=== PATIENT | male | born 1955 | race Caucasian/White ===

== ENCOUNTER 2020-04-30 08:37 | Emergency (ER) | payer MEDICARE, MEDICAID ==
[~2020-04-30] VITALS: Ht 167.6 cm; Wt 97.7 kg
[~2020-04-30 08:37] MED LIST: ATEN25TA PO; DUTA0.5C40 PO; GLIP10TA11 PO; HUM7525 SQ; INSU100I12 SQ; INSU100V13 SQ; LORA10TA7 PO; LOSA100T57 PO; METF-436 PO; METF-438 PO; OMEP-84 PO; SITA100T15 PO; TADA5TAB2 PO
[2020-04-30 08:40] VITALS: BP 155/45
[2020-04-30] MEDS ORDERED: BACI1PAC7 TP (09:12)
== END 2020-04-30 09:45 | disposition home or self-care (01) ==
LOC: ER 08:37
DX: S71.102A Unspecified open wound, left thigh, initial encounter (principal); G43.909 Migraine, unspecified, not intractable, without status migrainosus; I10 Essential (primary) hypertension; J44.9 Chronic obstructive pulmonary disease, unspecified; K21.9 Gastro-esophageal reflux disease without esophagitis; F12.90 Cannabis use, unspecified, uncomplicated; Z90.49 Acquired absence of other specified parts of digestive tract; Z90.89 Acquired absence of other organs; Z98.890 Other specified postprocedural states; Z56.0 Unemployment, unspecified; Z86.711 Personal history of pulmonary embolism; Z88.2 Allergy status to sulfonamides; Z88.8 Allergy status to other drugs, medicaments and biological substances; Z88.5 Allergy status to narcotic agent; Z79.4 Long term (current) use of insulin; Z79.899 Other long term (current) drug therapy; X58.XXXA Exposure to other specified factors, initial encounter; Y93.89 Activity, other specified; Y92.89 Other specified places as the place of occurrence of the external cause; Y99.8 Other external cause status
CPT/HCPCS: 99282

== ENCOUNTER 2020-06-08 07:59 | Emergency (ER) | payer OTHER, MEDICARE, MEDICAID ==
[~2020-06-08] VITALS: Ht 167.6 cm; Wt 97.3 kg
[2020-06-08 09:16] LABS: BASOPHILS # (AUTO) 0.1 X10'3 (0-0.2); BASOPHILS % (AUTO) 0.5 % (0-1); EOSINOPHILS # (AUTO) 0.1 X10'3 (0-0.9); EOSINOPHILS % (AUTO) 0.8 % (0-6); HEMATOCRIT 47.8 % (42.0-52.0); LYMPHOCYTES % (AUTO) 8.4 % (21-51); MEAN CORPUSCULAR HEMOGLOBIN 23.4 PG (27.0-31.0); MEAN CORPUSCULAR HGB CONC 31.4 g/dL (33.0-36.5); MEAN CORPUSCULAR VOLUME 74.3 FL (78-98); MEAN PLATELET VOLUME 8.8 FL (7.4-10.4); MONOCYTES # (AUTO) 1.2 X10'3 (0-0.9); MONOCYTES % (AUTO) 10.1 % (2-12); NEUTROPHILS # (AUTO) 9.8 X10'3 (1.8-7.7); NEUTROPHILS % (AUTO) 80.2 % (42-75); PLATELET COUNT 237 X10'3 (140-440); RED BLOOD COUNT 6.44 X10'6 (4.70-6.10); WHITE BLOOD COUNT 12.2 X10'3 (4.5-11.0)
--- NOTE | 2020-06-08 09:20 | NUR ---
Sinus bradycardia, HR low 39, asymptomatic. Catie MACKEY aware. Patient on telemetry, will continue to monitor.
[2020-06-08 09:25] LABS: ALANINE AMINOTRANSFERASE 9 U/L (12-78); ALBUMIN 3.8 G/DL (3.4-5.0); ALBUMIN/GLOBULIN RATIO 0.9 (1.1-1.5); ALKALINE PHOSPHATASE 82 IU/L (46-116); ANION GAP 15 (8-16); ASPARTATE AMINO TRANSFERASE 14 U/L (10-37); BILIRUBIN,TOTAL 0.8 MG/DL (0.1-1.0); BLOOD UREA NITROGEN 20 MG/DL (7-18); BUN/CREATININE RATIO 16.3 (5.4-32.0); CALCIUM 9.3 MG/DL (8.5-10.1); CHLORIDE 101 MMOL/L (99-107); CREATININE 1.23 MG/DL (0.60-1.10); GLUCOSE 150 MG/DL (70-104); POTASSIUM 4.3 MMOL/L (3.5-5.1); SODIUM 138 MMOL/L (135-145); TOTAL CARBON DIOXIDE 21.9 MMOL/L (24-32); TOTAL PROTEIN 8.1 G/DL (6.4-8.2); eGFR 59 ML/MIN
[2020-06-08] MEDS ORDERED: ipratropium/albuterol 3ml nebule NEB ONE (09:30)
[2020-06-08 09:57] LABS: ANISOCYTOSIS 2+; MICROCYTOSIS 1+; PLATELET ESTIMATE NORMAL; POIKILOCYTOSIS FEW
--- NOTE | 2020-06-08 11:17 | NUR ---
Snack given to patient.
[2020-06-08] MEDS ORDERED: AZIT-31 PO (12:00)
[2020-06-08] MEDS ORDERED: PRED20TA PO (12:00)
[2020-06-08 13:00] VITALS: BP 127/60
== END 2020-06-08 13:02 | disposition home or self-care (01) ==
LOC: ER 08:00
DX: J20.9 Acute bronchitis, unspecified (principal); Z20.822 Contact with and (suspected) exposure to COVID-19; E11.9 Type 2 diabetes mellitus without complications; J44.9 Chronic obstructive pulmonary disease, unspecified; F17.210 Nicotine dependence, cigarettes, uncomplicated; G43.909 Migraine, unspecified, not intractable, without status migrainosus; I10 Essential (primary) hypertension; K21.9 Gastro-esophageal reflux disease without esophagitis; I25.2 Old myocardial infarction; Z86.711 Personal history of pulmonary embolism; Z90.49 Acquired absence of other specified parts of digestive tract; Z86.73 Personal history of transient ischemic attack (TIA), and cerebral infarction without residual deficits; Z56.0 Unemployment, unspecified; Z72.89 Other problems related to lifestyle; Z85.9 Personal history of malignant neoplasm, unspecified; Z88.2 Allergy status to sulfonamides; Z88.1 Allergy status to other antibiotic agents; Z88.8 Allergy status to other drugs, medicaments and biological substances; Z79.4 Long term (current) use of insulin; Z79.2 Long term (current) use of antibiotics; Z79.899 Other long term (current) drug therapy
CPT/HCPCS: 36415; 71045; 80053; 82948; 83880; 84484; 85008; 85025; 87635; 93005; 94640; 99285; C9803; 94760

== ENCOUNTER 2020-06-18 12:08 | Emergency (ER) | payer OTHER, MEDICARE, MEDICAID ==
[~2020-06-18] VITALS: Ht 167.6 cm; Wt 98.2 kg
[~2020-06-18 12:08] MED LIST changes: +PRED20TA PO
[2020-06-18 13:22] LABS: BASOPHILS # (AUTO) 0.1 X10'3 (0-0.2); BASOPHILS % (AUTO) 0.8 % (0-1); EOSINOPHILS # (AUTO) 0.4 X10'3 (0-0.9); EOSINOPHILS % (AUTO) 3.6 % (0-6); HEMATOCRIT 46.3 % (42.0-52.0); HEMOGLOBIN 14.7 g/dl (14.0-17.9); LYMPHOCYTES # (AUTO) 1.6 X10'3 (1.1-4.8); MEAN CORPUSCULAR HEMOGLOBIN 23.9 PG (27.0-31.0); MEAN CORPUSCULAR HGB CONC 31.7 g/dL (33.0-36.5); MEAN CORPUSCULAR VOLUME 75.3 FL (78-98); MONOCYTES # (AUTO) 1.1 X10'3 (0-0.9); MONOCYTES % (AUTO) 10.8 % (2-12); NEUTROPHILS # (AUTO) 7.3 X10'3 (1.8-7.7); NEUTROPHILS % (AUTO) 69.8 % (42-75); PLATELET COUNT 230 X10'3 (140-440); RED BLOOD COUNT 6.14 X10'6 (4.70-6.10); WHITE BLOOD COUNT 10.5 X10'3 (4.5-11.0)
[2020-06-18 13:35] LABS: ALANINE AMINOTRANSFERASE 23 U/L (12-78); ALBUMIN 3.5 G/DL (3.4-5.0); ALBUMIN/GLOBULIN RATIO 0.9 (1.1-1.5); ALKALINE PHOSPHATASE 58 IU/L (46-116); ANION GAP 10 (8-16); ASPARTATE AMINO TRANSFERASE 13 U/L (10-37); BILIRUBIN,TOTAL 0.3 MG/DL (0.1-1.0); BLOOD UREA NITROGEN 20 MG/DL (7-18); BUN/CREATININE RATIO 17.4 (5.4-32.0); CALCIUM 9.5 MG/DL (8.5-10.1); CHLORIDE 105 MMOL/L (99-107); CREATININE 1.15 MG/DL (0.60-1.10); GLUCOSE 88 MG/DL (70-104); POTASSIUM 4.6 MMOL/L (3.5-5.1); SODIUM 142 MMOL/L (135-145); TOTAL CARBON DIOXIDE 27.3 MMOL/L (24-32); TOTAL PROTEIN 7.3 G/DL (6.4-8.2); eGFR 64 ML/MIN
[2020-06-18] MEDS ORDERED: ipratropium/albuterol 3ml nebule NEB ONE (14:15)
[2020-06-18 14:46] LABS: ANISOCYTOSIS 2+; ELLIPTOCYTES 1+; MICROCYTOSIS 1+; PLATELET ESTIMATE NORMAL
[2020-06-18 14:47] LABS: SCHISTOCYTES FEW
[2020-06-18] MEDS ORDERED: MESSAGE TO NURSING PO SCH (15:00)
[2020-06-18] MEDS ORDERED: iohexol 350MG/ML 100ml bottle IV ONE (15:07)
[2020-06-18] MEDS ORDERED: BENZ-16 PO (17:00)
[2020-06-18] MEDS ORDERED: DOXY100C2 PO (17:00)
[2020-06-18 17:15] VITALS: BP 128/73
== END 2020-06-18 17:17 | disposition home or self-care (01) ==
LOC: ER 12:11
DX: R06.02 Shortness of breath (principal); G47.30 Sleep apnea, unspecified; R05 Cough; R53.83 Other fatigue; G43.909 Migraine, unspecified, not intractable, without status migrainosus; I10 Essential (primary) hypertension; J44.9 Chronic obstructive pulmonary disease, unspecified; K21.9 Gastro-esophageal reflux disease without esophagitis; E11.9 Type 2 diabetes mellitus without complications; F12.90 Cannabis use, unspecified, uncomplicated; Z86.711 Personal history of pulmonary embolism; Z90.49 Acquired absence of other specified parts of digestive tract; Z90.89 Acquired absence of other organs; Z98.890 Other specified postprocedural states; Z72.89 Other problems related to lifestyle; Z56.0 Unemployment, unspecified; Z88.8 Allergy status to other drugs, medicaments and biological substances; Z88.2 Allergy status to sulfonamides; Z88.1 Allergy status to other antibiotic agents; Z79.899 Other long term (current) drug therapy; Z79.4 Long term (current) use of insulin
CPT/HCPCS: 36415; 71045; 71275; 80053; 83880; 84484; 85008; 85025; 85379; 93005; 94640; 99285; Q9967

== ENCOUNTER 2020-09-05 08:43 | Emergency (ER) | payer OTHER, MEDICARE, MEDICAID ==
[~2020-09-05] VITALS: Ht 167.6 cm; Wt 95.6 kg
[~2020-09-05 08:43] MED LIST changes: -PRED20TA PO
--- NOTE | 2020-09-05 09:52 | NUR ---
[facility] CALLED. 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 HE HAS RATCH OR REAL SYNDROME, REFERRED TO DR. ALVA. CURRENTLY THE LEADS ARE NOT IN PLACE.
--- NOTE | 2020-09-05 09:53 | NUR ---
MONIK FROM [facility]. SPOKE TO MIHAELA.
--- NOTE | 2020-09-05 10:00 | NUR ---
PACEMAKER MAGNET APPLIED PER MIHAELA MACKEY REQUEST. MONIK FROM [facility] IS COMING IN.
--- NOTE | 2020-09-05 10:30 | NUR ---
bibiana mcclain rep at bedside.
--- NOTE | 2020-09-05 11:47 | NUR ---
DR. CHO APPT 10AM 02/10
[2020-09-05 12:29] VITALS: BP 153/86
== END 2020-09-05 12:30 | disposition home or self-care (01) ==
LOC: ER 08:44
DX: T82.111A Breakdown (mechanical) of cardiac pulse generator (battery), initial encounter (principal); R06.02 Shortness of breath; G43.909 Migraine, unspecified, not intractable, without status migrainosus; I10 Essential (primary) hypertension; J44.9 Chronic obstructive pulmonary disease, unspecified; K21.9 Gastro-esophageal reflux disease without esophagitis; E11.9 Type 2 diabetes mellitus without complications; F12.90 Cannabis use, unspecified, uncomplicated; Z86.711 Personal history of pulmonary embolism; Z90.89 Acquired absence of other organs; Z98.890 Other specified postprocedural states; Z72.89 Other problems related to lifestyle; Z56.0 Unemployment, unspecified; Z88.2 Allergy status to sulfonamides; Z88.5 Allergy status to narcotic agent; Z88.1 Allergy status to other antibiotic agents; Z88.8 Allergy status to other drugs, medicaments and biological substances; Z79.4 Long term (current) use of insulin; Z79.899 Other long term (current) drug therapy; Y71.8 Miscellaneous cardiovascular devices associated with adverse incidents, not elsewhere classified
CPT/HCPCS: 71045; 93005; 99284

== ENCOUNTER 2021-01-22 12:43 | Emergency (ER) | payer OTHER, MEDICARE, MEDICAID ==
[~2021-01-22] VITALS: Ht 167.6 cm; Wt 91.2 kg
[~2021-01-22 12:43] MED LIST changes: +ALOG25TA PO; -ATEN25TA PO; +ATOR10TA87 PO; +BUDE10.2 INH; +DICL100G15 TOP; -DUTA0.5C40 PO; +EMPA10TA PO; +FINA5TAB11 PO; -GLIP10TA11 PO; +SERT25TA PO; -SITA100T15 PO; +TRAZ-256 PO
[2021-01-22] MEDS ORDERED: aspirin 81mg tab.chew PO ONE (13:55)
[2021-01-22 14:28] LABS: BASOPHILS # (AUTO) 0.1 X10'3 (0-0.2); BASOPHILS % (AUTO) 0.5 % (0-1); EOSINOPHILS # (AUTO) 0.2 X10'3 (0-0.9); EOSINOPHILS % (AUTO) 2.1 % (0-6); HEMATOCRIT 39.6 % (42.0-52.0); HEMOGLOBIN 12.6 g/dl (14.0-17.9); LYMPHOCYTES # (AUTO) 1.3 X10'3 (1.1-4.8); LYMPHOCYTES % (AUTO) 12.1 % (21-51); MEAN CORPUSCULAR HEMOGLOBIN 22.7 PG (27.0-31.0); MEAN CORPUSCULAR HGB CONC 31.9 g/dL (33.0-36.5); MEAN CORPUSCULAR VOLUME 71.1 FL (78-98); MEAN PLATELET VOLUME 8.1 FL (7.4-10.4); MONOCYTES # (AUTO) 0.9 X10'3 (0-0.9); MONOCYTES % (AUTO) 8.3 % (2-12); NEUTROPHILS # (AUTO) 8.2 X10'3 (1.8-7.7); PLATELET COUNT 267 X10'3 (140-440); RED BLOOD COUNT 5.57 X10'6 (4.70-6.10); RED CELL DISTRIBUTION WIDTH 20.3 % (11.5-14.5); WHITE BLOOD COUNT 10.6 X10'3 (4.5-11.0)
[2021-01-22 14:44] LABS: PARTIAL THROMBOPLASTIN TIME 29 SECONDS (22-32)
[2021-01-22 14:47] LABS: ALANINE AMINOTRANSFERASE 15 U/L (12-78); ALBUMIN 3.6 G/DL (3.4-5.0); ALBUMIN/GLOBULIN RATIO 0.9 (1.1-1.5); ALKALINE PHOSPHATASE 101 IU/L (46-116); ANION GAP 11 (8-16); ASPARTATE AMINO TRANSFERASE 14 U/L (10-37); BILIRUBIN,TOTAL 0.4 MG/DL (0.1-1.0); BLOOD UREA NITROGEN 18 MG/DL (7-18); BUN/CREATININE RATIO 14.9 (5.4-32.0); CALCIUM 9.2 MG/DL (8.5-10.1); CHLORIDE 105 MMOL/L (99-107); CREATININE 1.21 MG/DL (0.60-1.10); GLUCOSE 141 MG/DL (70-104); POTASSIUM 4.7 MMOL/L (3.5-5.1); SODIUM 142 MMOL/L (135-145); TOTAL CARBON DIOXIDE 25.9 MMOL/L (24-32); TOTAL PROTEIN 7.6 G/DL (6.4-8.2); eGFR 60 ML/MIN
[2021-01-22 14:54] LABS: MAGNESIUM 2.2 MG/DL (1.5-2.4)
[2021-01-22 15:33] LABS: ANISOCYTOSIS 3+; ELLIPTOCYTES 1+; MICROCYTOSIS 1+; PLATELET ESTIMATE NORMAL
[2021-01-22 15:34] LABS: HYPOCHROMASIA 1+
[2021-01-22 15:35] LABS: TEAR DROP CELLS FEW
--- NOTE | 2021-01-22 16:00 | NUR ---
TRIED TO INTERROGATE PACEMAKER, NOT WORKING OUTSIDE
[2021-01-22 18:07] VITALS: BP 165/77
== END 2021-01-22 18:04 | disposition home or self-care (01) ==
LOC: ER 12:44
DX: I13.0 Hypertensive heart and chronic kidney disease with heart failure and stage 1 through stage 4 chronic kidney disease, or unspecified chronic kidney disease (principal); E13.22 Other specified diabetes mellitus with diabetic chronic kidney disease; N18.9 Chronic kidney disease, unspecified; J44.9 Chronic obstructive pulmonary disease, unspecified; R19.7 Diarrhea, unspecified; G43.909 Migraine, unspecified, not intractable, without status migrainosus; Z20.822 Contact with and (suspected) exposure to COVID-19; Z95.0 Presence of cardiac pacemaker
CPT/HCPCS: 36415; 71045; 80053; 83735; 83880; 84484; 85008; 85025; 85610; 85730; 87635; 93005; 99285; C9803

== ENCOUNTER 2021-05-20 17:29 | Emergency (ER) | payer OTHER, MEDICARE, MEDICAID ==
[~2021-05-20] VITALS: Ht 167.6 cm; Wt 93.2 kg
[2021-05-20 17:52] VITALS: BP 149/61
== END 2021-05-20 19:42 | disposition left against medical advice (07) ==
LOC: ER 17:30
DX: R10.31 Right lower quadrant pain (principal); R05.9 Cough, unspecified; G43.909 Migraine, unspecified, not intractable, without status migrainosus; I11.0 Hypertensive heart disease with heart failure; I50.9 Heart failure, unspecified; J44.9 Chronic obstructive pulmonary disease, unspecified; F12.90 Cannabis use, unspecified, uncomplicated; K21.9 Gastro-esophageal reflux disease without esophagitis; Z87.01 Personal history of pneumonia (recurrent); Z56.0 Unemployment, unspecified; Z88.8 Allergy status to other drugs, medicaments and biological substances; Z88.2 Allergy status to sulfonamides; Z88.1 Allergy status to other antibiotic agents; Z79.899 Other long term (current) drug therapy; Z79.4 Long term (current) use of insulin; Z90.49 Acquired absence of other specified parts of digestive tract
CPT/HCPCS: 99281

== ENCOUNTER 2021-07-16 11:43 | Emergency (ER) | payer OTHER, MEDICARE ==
[~2021-07-16] VITALS: Ht 167.6 cm; Wt 93.7 kg
--- NOTE | 2021-07-16 12:36 | NUR ---
ECG COMPLETED AND PT WHEELED TO ROOM AND PLAE ON REST ROOM MATRON
[2021-07-16 13:02] LABS: BASOPHILS # (AUTO) 0.1 X10'3 (0-0.2); BASOPHILS % (AUTO) 0.8 % (0-1); EOSINOPHILS # (AUTO) 0.2 X10'3 (0-0.9); EOSINOPHILS % (AUTO) 3.4 % (0-6); HEMATOCRIT 34.5 % (42.0-52.0); HEMOGLOBIN 10.6 g/dl (14.0-17.9); LYMPHOCYTES % (AUTO) 13.3 % (21-51); MEAN CORPUSCULAR HEMOGLOBIN 21.1 PG (27.0-31.0); MEAN CORPUSCULAR HGB CONC 30.7 g/dL (33.0-36.5); MEAN CORPUSCULAR VOLUME 68.7 FL (78-98); MEAN PLATELET VOLUME 8.6 FL (7.4-10.4); MONOCYTES % (AUTO) 13.2 % (2-12); NEUTROPHILS # (AUTO) 5.1 X10'3 (1.8-7.7); NEUTROPHILS % (AUTO) 69.3 % (42-75); PLATELET COUNT 241 X10'3 (140-440); RED BLOOD COUNT 5.02 X10'6 (4.70-6.10); RED CELL DISTRIBUTION WIDTH 20.8 % (11.5-14.5); WHITE BLOOD COUNT 7.3 X10'3 (4.5-11.0)
[2021-07-16 13:12] LABS: ALANINE AMINOTRANSFERASE 14 U/L (12-78); ALBUMIN 3.3 G/DL (3.4-5.0); ALBUMIN/GLOBULIN RATIO 0.9 (1.1-1.5); ALKALINE PHOSPHATASE 86 IU/L (46-116); ANION GAP 10 (8-16); ASPARTATE AMINO TRANSFERASE 11 U/L (10-37); BILIRUBIN,TOTAL 0.2 MG/DL (0.1-1.0); BLOOD UREA NITROGEN 20 MG/DL (7-18); BUN/CREATININE RATIO 17.2 (5.4-32.0); CALCIUM 8.6 MG/DL (8.5-10.1); CHLORIDE 103 MMOL/L (99-107); CREATININE 1.16 MG/DL (0.60-1.10); GLUCOSE 207 MG/DL (70-104); POTASSIUM 4.5 MMOL/L (3.5-5.1); SODIUM 137 MMOL/L (135-145); TOTAL CARBON DIOXIDE 23.8 MMOL/L (24-32); TOTAL PROTEIN 6.9 G/DL (6.4-8.2); eGFR 63 ML/MIN
[2021-07-16 13:30] LABS: ANISOCYTOSIS 3+; ELLIPTOCYTES 1+; MICROCYTOSIS 2+; PLATELET ESTIMATE NORMAL
[2021-07-16 13:31] LABS: BURR CELLS FEW; TEAR DROP CELLS FEW
[2021-07-16] MEDS ORDERED: iohexol 350MG/ML 100ml bottle IV ONE (14:48)
[2021-07-16] MEDS ORDERED: FLUT1DIS INH (15:47)
[2021-07-16 16:06] VITALS: BP 129/91
== END 2021-07-16 16:07 | disposition home or self-care (01) ==
LOC: ER 11:44
DX: J40 Bronchitis, not specified as acute or chronic (principal); E11.9 Type 2 diabetes mellitus without complications; R11.0 Nausea; G43.909 Migraine, unspecified, not intractable, without status migrainosus; I11.0 Hypertensive heart disease with heart failure; I50.9 Heart failure, unspecified; J44.9 Chronic obstructive pulmonary disease, unspecified; K21.9 Gastro-esophageal reflux disease without esophagitis; F12.90 Cannabis use, unspecified, uncomplicated; Z86.711 Personal history of pulmonary embolism; Z90.89 Acquired absence of other organs; Z98.890 Other specified postprocedural states; Z72.89 Other problems related to lifestyle; Z56.0 Unemployment, unspecified; Z88.2 Allergy status to sulfonamides; Z88.5 Allergy status to narcotic agent; Z88.1 Allergy status to other antibiotic agents; Z88.8 Allergy status to other drugs, medicaments and biological substances; Z79.899 Other long term (current) drug therapy; Z79.4 Long term (current) use of insulin
CPT/HCPCS: 36415; 71045; 71275; 80053; 83880; 84484; 85008; 85025; 93005; 99285; Q9967

== ENCOUNTER 2021-08-06 06:20 | Emergency (ER) | payer OTHER, MEDICARE, MEDICAID ==
[~2021-08-06] VITALS: Ht 167.6 cm; Wt 90.9 kg
[~2021-08-06 06:20] MED LIST changes: +FLUT1DIS INH
[2021-08-06] MEDS ORDERED: ketorolac trometh. 30mg/ml inj. IV ONE (06:55)
[2021-08-06] MEDS ORDERED: ketorolac tromethamine 15mg/ml inj. IV ONE (06:55)
[2021-08-06] MEDS ORDERED: acetaminophen 325mg tablet PO ONE (06:55)
[2021-08-06 07:34] LABS: BASOPHILS # (AUTO) 0.1 X10'3 (0-0.2); BASOPHILS % (AUTO) 0.5 % (0-1); EOSINOPHILS # (AUTO) 0.3 X10'3 (0-0.9); EOSINOPHILS % (AUTO) 3.5 % (0-6); HEMATOCRIT 33.4 % (42.0-52.0); HEMOGLOBIN 10.2 g/dl (14.0-17.9); LYMPHOCYTES # (AUTO) 0.8 X10'3 (1.1-4.8); LYMPHOCYTES % (AUTO) 8.4 % (21-51); MEAN CORPUSCULAR HEMOGLOBIN 20.6 PG (27.0-31.0); MEAN CORPUSCULAR HGB CONC 30.5 g/dL (33.0-36.5); MEAN CORPUSCULAR VOLUME 67.6 FL (78-98); MEAN PLATELET VOLUME 8.4 FL (7.4-10.4); MONOCYTES # (AUTO) 0.9 X10'3 (0-0.9); MONOCYTES % (AUTO) 10.1 % (2-12); NEUTROPHILS # (AUTO) 7.2 X10'3 (1.8-7.7); NEUTROPHILS % (AUTO) 77.5 % (42-75); PLATELET COUNT 214 X10'3 (140-440); RED BLOOD COUNT 4.94 X10'6 (4.70-6.10); RED CELL DISTRIBUTION WIDTH 20.5 % (11.5-14.5); WHITE BLOOD COUNT 9.3 X10'3 (4.5-11.0)
[2021-08-06 07:48] LABS: ALANINE AMINOTRANSFERASE 16 U/L (12-78); ALBUMIN 3.4 G/DL (3.4-5.0); ALKALINE PHOSPHATASE 79 IU/L (46-116); ANION GAP 10 (8-16); ASPARTATE AMINO TRANSFERASE 15 U/L (10-37); BILIRUBIN,TOTAL 0.4 MG/DL (0.1-1.0); BLOOD UREA NITROGEN 16 MG/DL (7-18); CALCIUM 8.6 MG/DL (8.5-10.1); CHLORIDE 105 MMOL/L (99-107); CREATININE 1.14 MG/DL (0.60-1.10); GLUCOSE 246 MG/DL (70-104); POTASSIUM 4.4 MMOL/L (3.5-5.1); SODIUM 139 MMOL/L (135-145); TOTAL CARBON DIOXIDE 24.2 MMOL/L (24-32); TOTAL PROTEIN 6.8 G/DL (6.4-8.2); eGFR 64 ML/MIN
[2021-08-06 07:53] LABS: C-REACTIVE PROTEIN 1.92 MG/DL (0.0-0.5); MAGNESIUM 1.6 MG/DL (1.5-2.4)
[2021-08-06 07:56] LABS: ANISOCYTOSIS 3+; ELLIPTOCYTES 1+; HYPOCHROMASIA 1+; MICROCYTOSIS 2+; PLATELET ESTIMATE NORMAL
[2021-08-06 07:57] LABS: TEAR DROP CELLS FEW
[2021-08-06 08:57] VITALS: BP 120/77
== END 2021-08-06 08:59 | disposition home or self-care (01) ==
LOC: ER 06:21
DX: G89.18 Other acute postprocedural pain (principal); M25.511 Pain in right shoulder; G43.909 Migraine, unspecified, not intractable, without status migrainosus; I11.0 Hypertensive heart disease with heart failure; I50.9 Heart failure, unspecified; J44.9 Chronic obstructive pulmonary disease, unspecified; K21.9 Gastro-esophageal reflux disease without esophagitis; E11.9 Type 2 diabetes mellitus without complications; F12.90 Cannabis use, unspecified, uncomplicated; Z86.711 Personal history of pulmonary embolism; Z90.89 Acquired absence of other organs; Z98.890 Other specified postprocedural states; Z72.89 Other problems related to lifestyle; Z56.0 Unemployment, unspecified; Z88.2 Allergy status to sulfonamides; Z88.1 Allergy status to other antibiotic agents; Z88.8 Allergy status to other drugs, medicaments and biological substances; Z79.4 Long term (current) use of insulin; Z79.899 Other long term (current) drug therapy
CPT/HCPCS: 36415; 71045; 80053; 83605; 83735; 84145; 84484; 85008; 85025; 85651; 86140; 87040; 93005; 96374; 99285; J1885

== ENCOUNTER 2021-08-18 11:05 | Emergency (ER) | payer OTHER, MEDICARE, MEDICAID ==
[~2021-08-18] VITALS: Ht 167.6 cm; Wt 87.3 kg
[2021-08-18 11:13] VITALS: BP 165/53
[2021-08-18 11:48] LABS: CLARITY,URINE CLEAR (Clear); COLOR,URINE YELLOW (Yellow); GLUCOSE, URINE >=1000 mg/dl (Neg); KETONES,URINE NEGATIVE (Neg); LEUKOCYTE ESTERASE ,URINE NEGATIVE (Neg); NITRITES, URINE NEGATIVE (Neg); OCCULT BLOOD,URINE TRACE-INTACT (Neg); PROTEIN,URINE TRACE mg/dl (Neg); UROBILINOGEN,URINE 0.2 E.U/dL (0.2-1.0)
[2021-08-18 11:49] LABS: UA COLLECTION TYPE CLN CATCH MIDSTREAM
[2021-08-18 11:53] LABS: BASOPHILS # (AUTO) 0.1 X10'3 (0-0.2); BASOPHILS % (AUTO) 0.8 % (0-1); EOSINOPHILS # (AUTO) 0.4 X10'3 (0-0.9); EOSINOPHILS % (AUTO) 4.1 % (0-6); LYMPHOCYTES # (AUTO) 1.3 X10'3 (1.1-4.8); MEAN PLATELET VOLUME 8.2 FL (7.4-10.4); MONOCYTES # (AUTO) 0.8 X10'3 (0-0.9); MONOCYTES % (AUTO) 7.8 % (2-12); NEUTROPHILS # (AUTO) 7.5 X10'3 (1.8-7.7); NEUTROPHILS % (AUTO) 74.3 % (42-75); PLATELET COUNT 368 X10'3 (140-440); WHITE BLOOD COUNT 10.1 X10'3 (4.5-11.0)
[2021-08-18 11:59] LABS: ALANINE AMINOTRANSFERASE 14 U/L (12-78); ALBUMIN 3.5 G/DL (3.4-5.0); ALBUMIN/GLOBULIN RATIO 0.9 (1.1-1.5); ALKALINE PHOSPHATASE 91 IU/L (46-116); ANION GAP 11 (8-16); ASPARTATE AMINO TRANSFERASE 16 U/L (10-37); BILIRUBIN,TOTAL 0.3 MG/DL (0.1-1.0); BLOOD UREA NITROGEN 23 MG/DL (7-18); BUN/CREATININE RATIO 21.1 (5.4-32.0); CALCIUM 9.1 MG/DL (8.5-10.1); CHLORIDE 104 MMOL/L (99-107); CREATININE 1.09 MG/DL (0.60-1.10); GLUCOSE 107 MG/DL (70-104); LIPASE 104 U/L (73-393); POTASSIUM 4.1 MMOL/L (3.5-5.1); SODIUM 138 MMOL/L (135-145); TOTAL CARBON DIOXIDE 23.4 MMOL/L (24-32); TOTAL PROTEIN 7.6 G/DL (6.4-8.2); eGFR 68 ML/MIN
[2021-08-18 12:16] LABS: SQUAMOUS EPITHELIAL CELL,UR NONE SEEN /LPF (FEW)
[2021-08-18 12:17] LABS: BACTERIA,URINE FEW /HPF (Neg); RBC,URINE 0-2 /HPF (0-2); WBC,URINE 0-4 /HPF (0-4)
[2021-08-18 12:33] LABS: HEMATOCRIT 36.2 % (42.0-52.0); HEMOGLOBIN 11.7 g/dl (14.0-17.9); MEAN CORPUSCULAR HEMOGLOBIN 21.4 PG (27.0-31.0); MEAN CORPUSCULAR HGB CONC 32.4 g/dL (33.0-36.5); RED BLOOD COUNT 5.48 X10'6 (4.70-6.10)
[2021-08-18 12:34] LABS: RED CELL DISTRIBUTION WIDTH 20.6 % (11.5-14.5)
[2021-08-18 13:22] LABS: ANISOCYTOSIS 3+; PLATELET ESTIMATE NORMAL
[2021-08-18 13:23] LABS: BURR CELLS FEW; ELLIPTOCYTES 1+; MICROCYTOSIS 2+
[2021-08-18] MEDS ORDERED: albuterol 2.5 MG/3 ML nebule NEB ONE (15:35)
[2021-08-18] MEDS ORDERED: ipratropium/albuterol 3ml nebule NEB ONE (15:35)
== END 2021-08-18 16:09 | disposition left against medical advice (07) ==
LOC: ER 11:06
DX: R11.2 Nausea with vomiting, unspecified (principal); Z53.21 Procedure and treatment not carried out due to patient leaving prior to being seen by health care provider
CPT/HCPCS: 36415; 80053; 81001; 83690; 85008; 85025

== ENCOUNTER 2021-08-19 04:57 | Emergency (ER) | payer OTHER, MEDICARE, MEDICAID ==
[~2021-08-19] VITALS: Ht 167.6 cm; Wt 86.4 kg
[2021-08-19] MEDS ORDERED: ondansetron/PF 4mg/2ml inj IV ONE (05:55)
[2021-08-19] MEDS ORDERED: normal saline 1000ML IV soln IVB ONE (05:55)
[2021-08-19] MEDS ORDERED: pantoprazole IV 80 MG in normal saline 100ml IV soln 100 ML IV ONE (05:55)
[2021-08-19 06:04] LABS: BASOPHILS # (AUTO) 0.1 X10'3 (0-0.2); EOSINOPHILS # (AUTO) 0.4 X10'3 (0-0.9); EOSINOPHILS % (AUTO) 5.1 % (0-6); HEMATOCRIT 35.1 % (42.0-52.0); HEMOGLOBIN 10.9 g/dl (14.0-17.9); LYMPHOCYTES # (AUTO) 1.3 X10'3 (1.1-4.8); LYMPHOCYTES % (AUTO) 16.2 % (21-51); MEAN CORPUSCULAR HEMOGLOBIN 20.9 PG (27.0-31.0); MEAN CORPUSCULAR VOLUME 67.4 FL (78-98); MEAN PLATELET VOLUME 8.3 FL (7.4-10.4); MONOCYTES # (AUTO) 0.7 X10'3 (0-0.9); MONOCYTES % (AUTO) 8.4 % (2-12); NEUTROPHILS # (AUTO) 5.6 X10'3 (1.8-7.7); NEUTROPHILS % (AUTO) 69.3 % (42-75); PLATELET COUNT 339 X10'3 (140-440); RED CELL DISTRIBUTION WIDTH 21.1 % (11.5-14.5)
[2021-08-19 06:09] LABS: ALANINE AMINOTRANSFERASE 15 U/L (12-78); ALBUMIN 3.5 G/DL (3.4-5.0); ALBUMIN/GLOBULIN RATIO 0.9 (1.1-1.5); ALKALINE PHOSPHATASE 83 IU/L (46-116); ANION GAP 12 (8-16); ASPARTATE AMINO TRANSFERASE 20 U/L (10-37); BILIRUBIN,TOTAL 0.3 MG/DL (0.1-1.0); BLOOD UREA NITROGEN 22 MG/DL (7-18); CHLORIDE 104 MMOL/L (99-107); CREATININE 1.05 MG/DL (0.60-1.10); GLUCOSE 98 MG/DL (70-104); LIPASE 190 U/L (73-393); POTASSIUM 4.2 MMOL/L (3.5-5.1); SODIUM 139 MMOL/L (135-145); TOTAL CARBON DIOXIDE 22.9 MMOL/L (24-32); TOTAL PROTEIN 7.6 G/DL (6.4-8.2); eGFR 71 ML/MIN
--- NOTE | 2021-08-19 06:20 | NUR ---
Report from RYLAN Puente
[2021-08-19] MEDS: pantoprazole 40MG/NS 100ML BAG 100 ML IV SCH ×2 (06:32→06:49)
--- NOTE | 2021-08-19 06:42 | NUR ---
Pt sleeping, no apparent distress or needs at this time.
--- NOTE | 2021-08-19 07:49 | NUR ---
Pt sleeping, no apparent distress or needs at this time.
[2021-08-19 08:11] LABS: ANISOCYTOSIS 3+; ELLIPTOCYTES 1+; LARGE PLATELETS FEW; MICROCYTOSIS 2+; PLATELET ESTIMATE NORMAL
--- NOTE | 2021-08-19 09:09 | NUR ---
Pt unable to have BM unless he eats. UA done. Pt updated on md check
[2021-08-19 09:15] LABS: CLARITY,URINE CLEAR (Clear); COLOR,URINE YELLOW (Yellow); GLUCOSE, URINE >=1000 mg/dl (Neg); KETONES,URINE TRACE mg/dl (Neg); LEUKOCYTE ESTERASE ,URINE NEGATIVE (Neg); NITRITES, URINE NEGATIVE (Neg); OCCULT BLOOD,URINE NEGATIVE (Neg); PROTEIN,URINE TRACE mg/dl (Neg); UROBILINOGEN,URINE 0.2 E.U/dL (0.2-1.0)
[2021-08-19 09:16] LABS: UA COLLECTION TYPE NON-SPECIFIED
[2021-08-19 09:17] LABS: BACTERIA,URINE NONE SEEN /HPF (Neg); RBC,URINE 0-2 /HPF (0-2); SQUAMOUS EPITHELIAL CELL,UR FEW /LPF (FEW); WBC,URINE NONE SEEN /HPF (0-4)
--- NOTE | 2021-08-19 09:45 | NUR ---
patient in the room, eyes closed.We will monitor.
[2021-08-19 10:00] VITALS: BP 146/99
== END 2021-08-19 10:25 | disposition home or self-care (01) ==
LOC: ER 04:57
DX: R19.7 Diarrhea, unspecified (principal); R11.2 Nausea with vomiting, unspecified; R10.13 Epigastric pain; G43.909 Migraine, unspecified, not intractable, without status migrainosus; I11.0 Hypertensive heart disease with heart failure; I50.9 Heart failure, unspecified; J44.9 Chronic obstructive pulmonary disease, unspecified; K21.9 Gastro-esophageal reflux disease without esophagitis; E11.9 Type 2 diabetes mellitus without complications; F12.90 Cannabis use, unspecified, uncomplicated; Z86.711 Personal history of pulmonary embolism; Z90.89 Acquired absence of other organs; Z98.890 Other specified postprocedural states; Z72.89 Other problems related to lifestyle; Z56.0 Unemployment, unspecified; Z88.2 Allergy status to sulfonamides; Z88.1 Allergy status to other antibiotic agents; Z88.8 Allergy status to other drugs, medicaments and biological substances; Z79.4 Long term (current) use of insulin; Z79.899 Other long term (current) drug therapy
CPT/HCPCS: 80053; 81001; 83690; 85008; 85025; 96365; 96375; 99284; C9113; J2405; J7030

== ENCOUNTER 2023-03-08 16:58 | Emergency (ER) | payer OTHER, MEDICARE, MEDICAID ==
[~2023-03-08] VITALS: Ht 167.6 cm; Wt 100.5 kg
[~2023-03-08 16:58] MED LIST changes: -LOSA100T57 PO; +LOSA100T58 PO
[2023-03-08 17:10] VITALS: TEMP 98.6
[2023-03-08 17:38] LABS: BASOPHILS # (AUTO) 0.1 X10'3 (0-0.2); BASOPHILS % (AUTO) 0.7 % (0-1); EOSINOPHILS # (AUTO) 0.4 X10'3 (0-0.9); EOSINOPHILS % (AUTO) 4.3 % (0-6); HEMATOCRIT 40.2 % (42.0-52.0); HEMOGLOBIN 12.6 g/dl (14.0-17.9); LYMPHOCYTES # (AUTO) 1.2 X10'3 (1.1-4.8); LYMPHOCYTES % (AUTO) 11.1 % (21-51); MEAN CORPUSCULAR HEMOGLOBIN 21.5 PG (27.0-31.0); MEAN CORPUSCULAR HGB CONC 31.2 g/dL (33.0-36.5); MEAN PLATELET VOLUME 9.1 FL (7.4-10.4); MONOCYTES % (AUTO) 9.5 % (2-12); NEUTROPHILS # (AUTO) 7.7 X10'3 (1.8-7.7); NEUTROPHILS % (AUTO) 74.4 % (42-75); PLATELET COUNT 224 X10'3 (140-440); RED BLOOD COUNT 5.83 X10'6 (4.70-6.10); RED CELL DISTRIBUTION WIDTH 22.1 % (11.5-14.5); WHITE BLOOD COUNT 10.3 X10'3 (4.5-11.0)
[2023-03-08 17:55] LABS: ALANINE AMINOTRANSFERASE 6 U/L (12-78); ALBUMIN 3.9 G/DL (3.4-5.0); ALBUMIN/GLOBULIN RATIO 1.1 (1.1-1.5); ALKALINE PHOSPHATASE 90 IU/L (46-116); ANION GAP 12 (8-16); ASPARTATE AMINO TRANSFERASE 15 U/L (10-37); BILIRUBIN,TOTAL 0.4 MG/DL (0.1-1.0); BLOOD UREA NITROGEN 19 MG/DL (7-18); BUN/CREATININE RATIO 12.9 (10.0-20.0); CALCIUM 9.3 MG/DL (8.5-10.1); CHLORIDE 101 MMOL/L (99-107); CREATININE 1.47 MG/DL (0.60-1.10); GLUCOSE 183 MG/DL (70-104); SODIUM 137 MMOL/L (135-145); TOTAL CARBON DIOXIDE 23.6 MMOL/L (24-32); TOTAL PROTEIN 7.6 G/DL (6.4-8.2); eCRCL 43 ML/MIN; eGFR 48 ML/MIN
[2023-03-08 17:59] LABS: ANISOCYTOSIS 3+; MICROCYTOSIS 2+; NUCLEATED RED BLOOD CELLS 1 /100WBC (0-0); PLATELET ESTIMATE NORMAL; TOTAL CELLS COUNTED 100
[2023-03-08 18:00] LABS: ELLIPTOCYTES 1+; LARGE PLATELETS FEW
[2023-03-08 18:05] LABS: ETHANOL < 10 MG/DL (<10); THYROID STIMULATING HORMONE 4.51 ulU/ml (0.34-4.50)
--- NOTE | 2023-03-08 18:48 | NUR ---
The patient is a 67 year old male who was referred by the [facility] where he is treated for PTSD. The patient was very irritable on admit to the overflow but very cooperative. He feels that his medications are not helping his depression but he denies suicidal thoughts. He has had increasing irritabililty at home and has been annoyed with a neighbor who is mentally ill and banging on the [place] of his apartment. While in his sceduled appointment at the [facility] he made what sounded like threatening statements towards that neighbor and he was subsequently placed on a 5150 for being a danger to others. He denies that he has made any threats towards the neighbor but stated that he was going to "defend" himself if needed.
[2023-03-08 18:53] LABS: BILIRUBIN,URINE NEGATIVE (Neg); COLOR,URINE YELLOW (Yellow); GLUCOSE, URINE >=1000 mg/dl (Neg); KETONES,URINE TRACE mg/dl (Neg); LEUKOCYTE ESTERASE ,URINE NEGATIVE (Neg); NITRITES, URINE NEGATIVE (Neg); OCCULT BLOOD,URINE NEGATIVE (Neg); PH,URINE 5.5 (4.8-8.0); PROTEIN,URINE NEGATIVE (Neg); UROBILINOGEN,URINE 0.2 E.U/dL (0.2-1.0)
[2023-03-08 19:06] LABS: UA COLLECTION TYPE NON-SPECIFIED
[2023-03-08 19:08] LABS: BACTERIA,URINE FEW /HPF (Neg); MUCUS STRANDS NONE SEEN /LPF (Neg); RBC,URINE 0-2 /HPF (0-2); SQUAMOUS EPITHELIAL CELL,UR FEW /LPF (FEW); WBC CLUMPS,URINE FEW /HPF (NEGATIVE)
[2023-03-08 19:09] LABS: CLARITY,URINE SLIGHTLY CLOUDY (Clear)
[2023-03-08 19:10] LABS: URINE AMPHETAMINE SCREEN NEGATIVE (Neg); URINE BARBITUATE SCREEN NEGATIVE (Neg); URINE BENZODIAZEPINES SCREEN NEGATIVE (Neg); URINE CANNABINOID SCREEN POSITIVE (Neg); URINE COCAINE SCREEN NEGATIVE (Neg); URINE METHADONE SCREEN NEGATIVE (Neg); URINE OPIATE SCREEN NEGATIVE (Neg); URINE PHENCYCLIDINE SCREEN NEGATIVE (Neg); YEAST FEW /HPF (NEGATIVE)
--- NOTE | 2023-03-08 20:00 | NUR ---
THe patient has been quietly resting on his bed. Confirmed with the patient his home insulin regime
[2023-03-08] MEDS ORDERED: ATOR20TA PO ×2 (21:42→22:05)
[2023-03-08] MEDS ORDERED: TRAZ-256 PO (22:05)
[2023-03-08] MEDS ORDERED: empagliflozin PO (22:05)
[2023-03-08] MEDS ORDERED: glargine insulin SQ (22:05)
[2023-03-08] MEDS ORDERED: FINA5TAB11 PO (22:05)
[2023-03-08] MEDS ORDERED: TRAZ-251 PO (22:05)
[2023-03-08] MEDS ORDERED: METF-438 PO (22:05)
[2023-03-08] MEDS ORDERED: novolog SQ (22:05)
[2023-03-08] MEDS ORDERED: alogliptin PO (22:05)
[2023-03-08] MEDS ORDERED: OLAN5TAB3 PO (22:05)
[2023-03-08] MEDS ORDERED: SERT100T PO (22:05)
[2023-03-08] MEDS ORDERED: LOPE2CAP PO (22:05)
[2023-03-08] MEDS ORDERED: MIRT-67 PO (22:05)
[2023-03-08] MEDS ORDERED: prilosec PO (22:05)
[2023-03-08] MEDS ORDERED: albuteral INH (22:05)
--- NOTE | 2023-03-08 22:27 | NUR ---
The patient appears to be sleeping
--- NOTE | 2023-03-08 22:30 | NUR ---
PACKET SENT TO [facility]
[2023-03-08] MEDS ORDERED: albuterol 2.5 MG/3 ML nebule NEB PRN (23:10)
[2023-03-08] MEDS ORDERED: traZODone 50mg tablet PO PRN (23:10)
--- NOTE | 2023-03-09 01:05 | NUR ---
The patient appears to be sleeping
--- NOTE | 2023-03-09 03:07 | NUR ---
The patient appears to be sleeping
--- NOTE | 2023-03-09 05:38 | NUR ---
The patient appears to be sleeping
[2023-03-09 06:09] VITALS: BP 140/68; PULSE 65; RESP 18; O2SAT 97
--- NOTE | 2023-03-09 06:57 | NUR ---
Patient is awake resting on his bed. Patient did ambulate independently to the restroom
[2023-03-09] MEDS ORDERED: metFORMIN 500mg tablet PO SCH (07:30)
[2023-03-09] MEDS ORDERED: pantoprazole 40mg Tablet.DR PO SCH (07:30)
[2023-03-09] MEDS ORDERED: ALOGLIPTIN 25 MG PO SCH (08:00)
[2023-03-09] MEDS ORDERED: EMPAGLIFLOZIN 25 MG TABLET PO SCH (08:00)
[2023-03-09] MEDS ORDERED: sertraline 50mg tablet PO SCH (08:00)
[2023-03-09] MEDS ORDERED: insulin Lispro (HumaLOG) vial - multi-dose SQ SCH (08:00)
[2023-03-09] MEDS ORDERED: atorvastatin 20mg tablet PO SCH (08:00)
[2023-03-09] MEDS ORDERED: insulin glargine (Lantus) pen - multi-dose SQ SCH (08:00)
[2023-03-09] MEDS ORDERED: loperamide 2mg capsule PO SCH (08:00)
[2023-03-09] MEDS ORDERED: finasteride 5mg tablet PO SCH (08:00)
--- NOTE | 2023-03-09 08:32 | NUR ---
Patient given humalong and lantus per his medication Rec. patient states he administers the same does every day to himself. His blood sugar this moring was 153. His humalog and lantus are scheduled as a give. The patient is not on the protocol, patient was educated to let me know if he feels symptomatic at all from the medication. Patient verbalized understanding.
--- NOTE | 2023-03-09 10:00 | NUR ---
patient sitting up on bedside talking with [facility]
[2023-03-09] MEDS ORDERED: OLANZAPINE 5 MG TABLET PO SCH (21:00)
[2023-03-09] MEDS ORDERED: mirtazapine 15mg tablet PO SCH (21:00)
[2023-03-09] MEDS ORDERED: traZODone 50mg tablet PO SCH (21:00)
== END 2023-03-09 11:48 | disposition home or self-care (01) ==
LOC: ER 16:59
DX: F43.10 Post-traumatic stress disorder, unspecified (principal); Z20.822 Contact with and (suspected) exposure to COVID-19; X58.XXXA Exposure to other specified factors, initial encounter; Y93.89 Activity, other specified; Y92.89 Other specified places as the place of occurrence of the external cause; Y99.8 Other external cause status
CPT/HCPCS: 36415; 80053; 80305; 80320; 81001; 82948; 84443; 85007; 85025; 87811; 96372; 99285; J1815

== ENCOUNTER 2023-08-30 17:01 | Emergency (ER) | payer OTHER, MEDICARE, MEDICAID ==
[~2023-08-30] VITALS: Ht 167.6 cm; Wt 102.3 kg
[~2023-08-30 17:01] MED LIST changes: -ALOG25TA PO; -ATOR10TA87 PO; +ATOR20TA PO; +AZIT250T83 PO; -BUDE10.2 INH; -DICL100G15 TOP; -EMPA10TA PO; -FLUT1DIS INH; -HUM7525 SQ; -INSU100I12 SQ; -INSU100V13 SQ; +LOPE2CAP PO; -LORA10TA7 PO; -LOSA100T58 PO; -METF-436 PO; +MIRT-67 PO; +OLAN5TAB3 PO; -OMEP-84 PO; +PROM118S5 PO; +SERT100T PO; -SERT25TA PO; -TADA5TAB2 PO; +TRAZ-251 PO; +albuteral INH; +alogliptin PO; +empagliflozin PO; +glargine insulin SQ; +novolog SQ; +prilosec PO
[2023-08-30 17:20] VITALS: BP 142/74; PULSE 92; TEMP 97.8; O2SAT 97
[2023-08-30 19:24] LABS: BASOPHILS # (AUTO) 0.1 X10'3 (0-0.2); BASOPHILS % (AUTO) 0.7 % (0-1); EOSINOPHILS # (AUTO) 0.3 X10'3 (0-0.9); EOSINOPHILS % (AUTO) 3.2 % (0-6); HEMATOCRIT 45.4 % (42.0-52.0); HEMOGLOBIN 14.2 g/dl (14.0-17.9); LYMPHOCYTES # (AUTO) 2.1 X10'3 (1.1-4.8); LYMPHOCYTES % (AUTO) 19.6 % (21-51); MEAN CORPUSCULAR HEMOGLOBIN 21.6 PG (27.0-31.0); MEAN CORPUSCULAR HGB CONC 31.2 g/dL (33.0-36.5); MEAN PLATELET VOLUME 8.7 FL (7.4-10.4); MONOCYTES # (AUTO) 1.2 X10'3 (0-0.9); MONOCYTES % (AUTO) 11.1 % (2-12); NEUTROPHILS # (AUTO) 6.9 X10'3 (1.8-7.7); NEUTROPHILS % (AUTO) 65.4 % (42-75); PLATELET COUNT 238 X10'3 (140-440); RED BLOOD COUNT 6.57 X10'6 (4.70-6.10); RED CELL DISTRIBUTION WIDTH 22.3 % (11.5-14.5); WHITE BLOOD COUNT 10.5 X10'3 (4.5-11.0)
[2023-08-30 19:33] LABS: APTT 29 SECONDS (22-32); INR 1.1 INR; PROTHROMBIN TIME 11.3 SECONDS (9.0-12.0)
[2023-08-30 19:40] LABS: ALANINE AMINOTRANSFERASE 17 U/L (12-78); ALBUMIN/GLOBULIN RATIO 0.9 (1.1-1.5); ALKALINE PHOSPHATASE 89 IU/L (46-116); ANION GAP 14 (8-16); ASPARTATE AMINO TRANSFERASE 19 U/L (10-37); BILIRUBIN,TOTAL 0.4 MG/DL (0.1-1.0); BLOOD UREA NITROGEN 37 MG/DL (7-18); BUN/CREATININE RATIO 21.4 (10.0-20.0); CALCIUM 9.4 MG/DL (8.5-10.1); CHLORIDE 98 MMOL/L (99-107); CREATININE 1.73 MG/DL (0.60-1.10); GLUCOSE 211 MG/DL (70-104); POTASSIUM 4.1 MMOL/L (3.5-5.1); SODIUM 135 MMOL/L (135-145); TOTAL CARBON DIOXIDE 22.7 MMOL/L (24-32); TOTAL PROTEIN 8.3 G/DL (6.4-8.2); eCRCL 37 ML/MIN; eGFR 39 ML/MIN
[2023-08-30 19:42] LABS: MAGNESIUM 2.1 MG/DL (1.5-2.4); PRO BRAIN NATRIURETIC PEPTIDE 109 PG/ML (0-125); THYROID STIMULATING HORMONE 2.58 ulU/ml (0.34-4.50)
[2023-08-30] MEDS ORDERED: PANT40TA54 PO (20:36)
[2023-08-30 20:49] LABS: ANISOCYTOSIS 3+; MICROCYTOSIS 2+; PLATELET ESTIMATE NORMAL
[2023-08-30 20:50] LABS: ELLIPTOCYTES 1+; SCHISTOCYTES FEW; TEAR DROP CELLS FEW
[2023-08-30 21:06] VITALS: RESP 16
== END 2023-08-30 21:13 | disposition home or self-care (01) ==
LOC: ER 17:02
DX: R05.9 Cough, unspecified (principal); K21.9 Gastro-esophageal reflux disease without esophagitis; Z88.2 Allergy status to sulfonamides; Z88.8 Allergy status to other drugs, medicaments and biological substances; I11.0 Hypertensive heart disease with heart failure; I50.9 Heart failure, unspecified; G43.909 Migraine, unspecified, not intractable, without status migrainosus; Z86.711 Personal history of pulmonary embolism; G47.30 Sleep apnea, unspecified; E11.9 Type 2 diabetes mellitus without complications; I25.10 Atherosclerotic heart disease of native coronary artery without angina pectoris; I25.2 Old myocardial infarction; F12.90 Cannabis use, unspecified, uncomplicated
CPT/HCPCS: 36415; 71045; 80053; 83605; 83735; 83880; 84145; 84439; 84443; 84484; 85008; 85025; 85610; 85730; 87040; 87502; 87503; 93005; 99285